=== PATIENT | female | born 1975 | race African-American/Black ===

== ENCOUNTER 2017-05-05 16:03 | Emergency (ER) ==
[2017-05-05 16:06] VITALS: BP 104/66; TEMP 98.3; BMI 23.8
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
== END 2017-05-05 18:04 | disposition home or self-care (01) ==
LOC: ED 16:03
DX: S62.611A Displaced fracture of proximal phalanx of left index finger, initial encounter for closed fracture (principal); V89.2XXA Person injured in unspecified motor-vehicle accident, traffic, initial encounter; F17.210 Nicotine dependence, cigarettes, uncomplicated
CPT/HCPCS: 99283

== ENCOUNTER 2017-05-14 22:59 | Emergency (ER) ==
[2017-05-14 22:59] VITALS: BMI 23.8
[2017-05-14 23:09] VITALS: BP 91/57; TEMP 98.9
[2017-05-14] MEDS ORDERED: NORCO 5-325 PO STA (23:34)
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
--- NOTE | 2017-05-15 07:55 | DI ---
EXAM: Three views of the second digit HISTORY: Injury. COMPARISON: Left second digit x-rays 05/05/2017 FINDINGS: There is small avulsion fracture of the ventral proximal aspect of the middle phalanx whic h is unchanged from prior evaluation. Dorsal aspect of the avulsion fracture of the proximal mid ph alanx is unchanged. The soft tissues demonstrate mild soft tissue swelling. IMPRESSION: No change in minimally displaced avulsion fracture off the ventral aspect of the proxim al mid phalanx and dorsal aspect of the proximal mid phalanx of the second digit.
== END 2017-05-14 23:45 | disposition home or self-care (01) ==
LOC: ED 22:59
DX: S62.641A Nondisplaced fracture of proximal phalanx of left index finger, initial encounter for closed fracture (principal); F17.210 Nicotine dependence, cigarettes, uncomplicated
CPT/HCPCS: 99282